=== PATIENT | female | born 1945 | race Caucasian/White ===

== ENCOUNTER → 2024-01-07 12:47 | Outpatient (REF) | payer MEDICARE, OTHER, SELFPAY | LOC: WDC 12:47 | PROVIDERS: ATTENDING PHYSICIAN Family Medicine | DX: Z12.31 Encounter for screening mammogram for malignant neoplasm of breast (principal) | CPT/HCPCS: 77063; 77067 ==

== ENCOUNTER → 2024-01-12 10:22 | Outpatient (REF) | payer MEDICARE, OTHER, SELFPAY ==
[2024-01-12 11:11] LABS: % Basophils 0.8 % (0-2); % Eosinophils 5.1 % (0-6); % Immature Granulocytes 0.4 % (0-0.5); % Lymphocytes 22.5 % (20.5-51.1); % Neutrophils 64.2 % (42.2-75.2); Absolute Eosinophils 0.3 10^3/uL (0-0.7); Absolute Lymphocytes 1.2 10^3/uL (1.2-3.4); Absolute Monocytes 0.4 10^3/uL (0.1-0.6); Absolute Neutrophils 3.4 10^3/uL (1.4-6.5); Hematocrit 47.1 % (37.0-47.0); Hemoglobin 16.2 g/dL (12.0-16.0); Mean Corp Hgb Conc. 34.4 g/dL (33.0-37.0); Mean Corpuscular Hgb 32.7 pg (27.0-31.0); Mean Corpuscular Volume 95.2 fL (81.0-99.0); Mean Platelet Volume 10.1 fL (7.4-10.4); Nucleated Red Blood Cells % 0 %; Platelet Count 266 10^3/uL (130-400); Red Blood Cell Count 4.95 10^6/uL (4.20-5.40); Red Cell Dist. Width 13.1 % (11.5-14.5); White Blood Cell Count 5.3 10^3/uL (4.8-10.8)
[2024-01-12 11:44] LABS: ALT (SGPT) 45 U/L (0-35); AST (SGOT) 40 U/L (14-36); Albumin 4.8 g/dl (3.5-5.0); Alkaline Phosphatase 74 U/L (38-126); Blood Urea Nitrogen 20 mg/dl (7-17); Calcium 9.8 mg/dl (8.4-10.2); Carbon Dioxide 28 mmol/L (22-30); Chloride 101 mmol/L (98-107); Glucose 130 mg/dl (70-99); Potassium 4.1 mmol/L (3.5-5.1); Sodium 140 mmol/L (135-145); Total Bilirubin 0.7 mg/dl (0.2-1.3); Total Protein 7.3 g/dl (6.3-8.2); Uric Acid 5.4 mg/dl (2.5-6.2); eGFR > 60.00
== END ==
LOC: REG 10:22
PROVIDERS: ATTENDING PHYSICIAN Internal Medicine; FAMILY PHYSICIAN Family Medicine
DX: M10.9 Gout, unspecified (principal); M1A.9XX1 Chronic gout, unspecified, with tophus (tophi); Z51.81 Encounter for therapeutic drug level monitoring
CPT/HCPCS: 36415; 80053; 84550; 85025

== ENCOUNTER → 2024-04-20 07:28 | Outpatient (REF) | payer MEDICARE, OTHER, SELFPAY ==
[2024-04-20 09:18] LABS: % Basophils 0.9 % (0-2); % Immature Granulocytes 0.2 % (0-0.5); % Lymphocytes 27.1 % (20.5-51.1); % Monocytes 9.6 % (1.7-9.3); % Neutrophils 56.2 % (42.2-75.2); Absolute Basophils 0.1 10^3/uL (0-0.2); Absolute Eosinophils 0.4 10^3/uL (0-0.7); Absolute Lymphocytes 1.6 10^3/uL (1.2-3.4); Absolute Monocytes 0.6 10^3/uL (0.1-0.6); Absolute Neutrophils 3.3 10^3/uL (1.4-6.5); Hematocrit 44.7 % (37.0-47.0); Hemoglobin 14.8 g/dL (12.0-16.0); Mean Corp Hgb Conc. 33.1 g/dL (33.0-37.0); Mean Corpuscular Hgb 32.4 pg (27.0-31.0); Mean Corpuscular Volume 97.8 fL (81.0-99.0); Mean Platelet Volume 10.2 fL (7.4-10.4); Nucleated Red Blood Cells % 0 %; Platelet Count 235 10^3/uL (130-400); Red Blood Cell Count 4.57 10^6/uL (4.20-5.40); Red Cell Dist. Width 13.1 % (11.5-14.5); White Blood Cell Count 5.8 10^3/uL (4.8-10.8)
[2024-04-20 09:46] LABS: ALT (SGPT) 25 U/L (0-35); AST (SGOT) 31 U/L (14-36); Albumin 4.5 g/dl (3.5-5.0); Alkaline Phosphatase 78 U/L (38-126); Blood Urea Nitrogen 17 mg/dl (7-17); Carbon Dioxide 32 mmol/L (22-30); Chloride 100 mmol/L (98-107); Glucose 112 mg/dl (70-99); Potassium 4.1 mmol/L (3.5-5.1); Sodium 141 mmol/L (135-145); Total Bilirubin 0.5 mg/dl (0.2-1.3); Total Protein 6.9 g/dl (6.3-8.2); Uric Acid 4.7 mg/dl (2.5-6.2); eGFR > 60.00
== END ==
LOC: REG 07:28
PROVIDERS: ATTENDING PHYSICIAN Internal Medicine; FAMILY PHYSICIAN Family Medicine
DX: M10.9 Gout, unspecified (principal); M1A.9XX1 Chronic gout, unspecified, with tophus (tophi); Z51.81 Encounter for therapeutic drug level monitoring
CPT/HCPCS: 36415; 80053; 84550; 85025

== ENCOUNTER → 2024-08-11 07:23 | Outpatient (REF) | payer MEDICARE, OTHER, SELFPAY ==
[2024-08-11 09:16] LABS: ALT (SGPT) 32 U/L (0-35); AST (SGOT) 33 U/L (14-36); Albumin 4.6 g/dl (3.5-5.0); Alkaline Phosphatase 69 U/L (38-126); Blood Urea Nitrogen 19 mg/dl (7-17); Calcium 9.8 mg/dl (8.4-10.2); Carbon Dioxide 30 mmol/L (22-30); Chloride 99 mmol/L (98-107); Glucose 116 mg/dl (70-99); HDL Cholesterol 45 mg/dl; LDL Cholesterol, Calculated 75 mg/dl; Potassium 3.8 mmol/L (3.5-5.1); Sodium 144 mmol/L (135-145); Total Bilirubin 0.5 mg/dl (0.2-1.3); Total Cholesterol 191 mg/dl (50-199); Total Protein 6.9 g/dl (6.3-8.2); Triglyceride 355 mg/dl (10-149); Very Low Density Lipoprotein 71 mg/dl (0-30); eGFR > 60.00
[2024-08-11 09:54] LABS: Glycohemoglobin (HgbA1c) 6.2 % (4.0-5.6)
== END ==
LOC: REG 07:23
PROVIDERS: ATTENDING PHYSICIAN Family Medicine
DX: E78.2 Mixed hyperlipidemia (principal); R73.9 Hyperglycemia, unspecified
CPT/HCPCS: 36415; 80053; 80061; 83036

== ENCOUNTER → 2024-10-19 07:39 | Outpatient (REF) | payer MEDICARE, OTHER, SELFPAY ==
[2024-10-19 08:23] LABS: % Basophils 0.7 % (0-2); % Eosinophils 6.3 % (0-6); % Immature Granulocytes 0.4 % (0-0.5); % Lymphocytes 30.6 % (20.5-51.1); % Monocytes 10.2 % (1.7-9.3); % Neutrophils 51.8 % (42.2-75.2); Absolute Eosinophils 0.4 10^3/uL (0-0.7); Absolute Lymphocytes 1.7 10^3/uL (1.2-3.4); Absolute Monocytes 0.6 10^3/uL (0.1-0.6); Absolute Neutrophils 2.9 10^3/uL (1.4-6.5); Hemoglobin 14.7 g/dL (12.0-16.0); Mean Corp Hgb Conc. 32.7 g/dL (33.0-37.0); Mean Corpuscular Hgb 32.6 pg (27.0-31.0); Mean Corpuscular Volume 99.8 fL (81.0-99.0); Mean Platelet Volume 9.6 fL (7.4-10.4); Nucleated Red Blood Cells % 0 %; Platelet Count 241 10^3/uL (130-400); Red Blood Cell Count 4.51 10^6/uL (4.20-5.40); Red Cell Dist. Width 13.3 % (11.5-14.5); White Blood Cell Count 5.6 10^3/uL (4.8-10.8)
[2024-10-19 08:59] LABS: ALT (SGPT) 28 U/L (0-35); AST (SGOT) 31 U/L (14-36); Albumin 4.5 g/dl (3.5-5.0); Alkaline Phosphatase 67 U/L (38-126); Blood Urea Nitrogen 18 mg/dl (7-17); Calcium 9.6 mg/dl (8.4-10.2); Carbon Dioxide 29 mmol/L (22-30); Chloride 100 mmol/L (98-107); Glucose 111 mg/dl (70-99); Sodium 140 mmol/L (135-145); Total Bilirubin 0.6 mg/dl (0.2-1.3); Total Protein 6.8 g/dl (6.3-8.2); Uric Acid 4.6 mg/dl (2.5-6.2); eGFR > 60.00
== END ==
LOC: REG 07:39
PROVIDERS: ATTENDING PHYSICIAN Internal Medicine
DX: M10.9 Gout, unspecified (principal); M1A.9XX1 Chronic gout, unspecified, with tophus (tophi); Z51.81 Encounter for therapeutic drug level monitoring
CPT/HCPCS: 36415; 80053; 84550; 85025

== ENCOUNTER → 2025-01-30 16:40 | Outpatient (REF) | payer MEDICARE, OTHER, SELFPAY | LOC: WDC 16:40 | PROVIDERS: ATTENDING PHYSICIAN Family Medicine | DX: Z12.31 Encounter for screening mammogram for malignant neoplasm of breast (principal) | CPT/HCPCS: 77063; 77067 ==

== ENCOUNTER → 2025-04-27 07:33 | Outpatient (REF) | payer MEDICARE, OTHER, SELFPAY ==
[2025-04-27 08:04] LABS: % Basophils 0.8 % (0-2); % Eosinophils 6.4 % (0-6); % Immature Granulocytes 0.3 % (0-0.5); % Lymphocytes 29.1 % (20.5-51.1); % Monocytes 8.9 % (1.7-9.3); % Neutrophils 54.5 % (42.2-75.2); Absolute Basophils 0.1 10^3/uL (0-0.2); Absolute Eosinophils 0.4 10^3/uL (0-0.7); Absolute Lymphocytes 1.7 10^3/uL (1.2-3.4); Absolute Monocytes 0.5 10^3/uL (0.1-0.6); Absolute Neutrophils 3.2 10^3/uL (1.4-6.5); Hemoglobin 15.2 g/dL (12.0-16.0); Mean Corp Hgb Conc. 33.8 g/dL (33.0-37.0); Mean Corpuscular Hgb 32.4 pg (27.0-31.0); Mean Corpuscular Volume 95.9 fL (81.0-99.0); Mean Platelet Volume 9.9 fL (7.4-10.4); Nucleated Red Blood Cells % 0 %; Platelet Count 212 10^3/uL (130-400); Red Blood Cell Count 4.69 10^6/uL (4.20-5.40); Red Cell Dist. Width 13.3 % (11.5-14.5)
[2025-04-27 08:36] LABS: ALT (SGPT) 24 U/L (0-35); AST (SGOT) 24 U/L (14-36); Albumin 4.6 g/dl (3.5-5.0); Alkaline Phosphatase 62 U/L (38-126); Blood Urea Nitrogen 22 mg/dl (7-17); Carbon Dioxide 30 mmol/L (22-30); Chloride 104 mmol/L (98-107); Glucose 118 mg/dl (70-99); Potassium 4.1 mmol/L (3.5-5.1); Sodium 143 mmol/L (135-145); Total Bilirubin 0.7 mg/dl (0.2-1.3); Total Protein 7.1 g/dl (6.3-8.2); Uric Acid 4.8 mg/dl (2.5-6.2); eGFR > 60.00
== END ==
LOC: REG 07:33
PROVIDERS: ATTENDING PHYSICIAN Physician Assistant; FAMILY PHYSICIAN Family Medicine
DX: M10.9 Gout, unspecified (principal); M1A.9XX1 Chronic gout, unspecified, with tophus (tophi); Z51.81 Encounter for therapeutic drug level monitoring
CPT/HCPCS: 36415; 80053; 84550; 85025

== ENCOUNTER → 2025-07-13 07:04 | Outpatient (REF) | payer MEDICARE, OTHER, SELFPAY ==
[2025-07-13 07:42] LABS: Hematocrit 45.5 % (37.0-47.0); Hemoglobin 15.2 g/dL (12.0-16.0); Mean Corp Hgb Conc. 33.4 g/dL (33.0-37.0); Mean Corpuscular Volume 97.2 fL (81.0-99.0); Nucleated Red Blood Cells % 0 %; Platelet Count 229 10^3/uL (130-400); Red Cell Dist. Width 13.2 % (11.5-14.5)
[2025-07-13 08:19] LABS: ALT (SGPT) 29 U/L (0-35); AST (SGOT) 28 U/L (14-36); Albumin 4.8 g/dl (3.5-5.0); Alkaline Phosphatase 70 U/L (38-126); Blood Urea Nitrogen 22 mg/dl (7-17); Calcium 9.7 mg/dl (8.4-10.2); Carbon Dioxide 33 mmol/L (22-30); Chloride 102 mmol/L (98-107); Glucose 110 mg/dl (70-99); HDL Cholesterol 42 mg/dl; LDL Cholesterol, Calculated 60 mg/dl; Potassium 4.2 mmol/L (3.5-5.1); Sodium 143 mmol/L (135-145); Total Protein 7.0 g/dl (6.3-8.2); Very Low Density Lipoprotein 68 mg/dl (0-30); eGFR > 60.00
[2025-07-13 08:46] LABS: TSH 5.27 uIU/ml (0.47-4.68)
[2025-07-13 10:12] LABS: Glycohemoglobin (HgbA1c) 6.2 % (4.0-5.6)
== END ==
LOC: REG 07:04
PROVIDERS: ATTENDING PHYSICIAN Family Medicine
DX: R73.9 Hyperglycemia, unspecified (principal); E03.9 Hypothyroidism, unspecified; I10 Essential (primary) hypertension; E78.2 Mixed hyperlipidemia; R73.03 Prediabetes
CPT/HCPCS: 36415; 80053; 80061; 83036; 84443; 85025

== ENCOUNTER → 2025-09-17 07:00 | Outpatient (REF) | payer MEDICARE, OTHER, SELFPAY ==
[2025-09-17 09:04] LABS: TSH 2.96 uIU/ml (0.47-4.68)
== END ==
LOC: REG 07:00
PROVIDERS: ATTENDING PHYSICIAN Family Medicine
DX: E03.9 Hypothyroidism, unspecified (principal)
CPT/HCPCS: 36415; 84443

== ENCOUNTER 2025-10-03 11:50 | Emergency (ER) | payer MEDICARE, OTHER, SELFPAY ==
[2025-10-03 11:58] VITALS: BP 169/97
[2025-10-03 12:17] LABS: Hematocrit 46.6 % (37.0-47.0); Hemoglobin 16.2 g/dL (12.0-16.0); Mean Corp Hgb Conc. 34.8 g/dL (33.0-37.0); Mean Corpuscular Volume 93.2 fL (81.0-99.0); Nucleated Red Blood Cells % 0 %; Platelet Count 285 10^3/uL (130-400); Red Cell Dist. Width 13.2 % (11.5-14.5)
[2025-10-03 12:29] LABS: ALT (SGPT) 24 U/L (0-35); AST (SGOT) 26 U/L (14-36); Albumin 5.0 g/dl (3.5-5.0); Alkaline Phosphatase 71 U/L (38-126); Blood Urea Nitrogen 14 mg/dl (7-17); Calcium 10.0 mg/dl (8.4-10.2); Carbon Dioxide 30 mmol/L (22-30); Chloride 99 mmol/L (98-107); Glucose 147 mg/dl (70-99); Potassium 3.5 mmol/L (3.5-5.1); Sodium 138 mmol/L (135-145); Total Protein 7.7 g/dl (6.3-8.2); eGFR > 60.00
[2025-10-03 13:18] LABS: Urine Character Clear (Clear)
[2025-10-03 13:25] LABS: Urine Red Blood Cell 0-2 /HPF (0-2); Urine White Cell 0-2 /HPF (0-5)
--- NOTE | 2025-10-03 13:37 | ED.GENMED ---
History of Present Illness
General
Chief Complaint: Anxiety
Time Seen by Provider: 10/03/25 13:37
History of Present Illness
History of Present Illness:
FOCUSED PAST MEDICAL HISTORY
- Hypothyroidism, breast cancer, anxiety
REVIEW OF OLD RECORDS
- No old records available for review in [facility]
Note:
CHIEF COMPLAINT(S)
Anxiety and panic attacks.
HISTORY OF PRESENT ILLNESS
The patient is a 80-year-old female with a reported past medical history of mild anxiety. She presents with worsening anxiety symptoms over the past three weeks. Initially, she experienced significant difficulties coping and increased anxiety
levels, prompting her to seek medical care. A week ago, she was prescribed escitalopram (Lexapro) 5 mg daily, which she reports has worsened her symptoms, especially today.
Historically, she has managed her anxiety with alprazolam (Xanax) 0.125 mg as needed for about 20-30 years. Recently, she has been consuming this dose, which she describes as 'half of the lowest dosage,' once or twice daily during heightened anxiety
episodes. She last took a dose this morning.
The onset of severe anxiety coincided with her non-specific test for urinary tract infection (UTI), which she perceived as positive, though she reports no typical UTI symptoms currently. Her urinary analysis in the emergency room showed an absence
of significant leukocytes, negative nitrites, and normal urinary findings, suggesting no active UTI. Blood tests indicated slightly elevated blood sugar but were otherwise normal.
PAST MEDICAL AND SURIGICAL HISTORY
Reported propensity to urinary tract infections, last noted about a year ago, with symptoms like hemorrhagic manifestations.
SOCIAL HISTORY
No alcohol or drug use reported.
MEDICATIONS
- Alprazolam 0.125 mg as needed
- Escitalopram 5 mg once daily
PHYSICAL EXAM
General: Alert, no acute distress.
Skin: Warm, dry.
Head: Normocephalic, atraumatic.
Neck: Supple, trachea midline.
Eye, Ears, Nose, Mouth, and Throat: Oral mucosa moist.
Cardiovascular: Normal peripheral perfusion, no edema.
Respiratory: Respirations are non-labored.
Gastrointestinal: Abdomen nondistended.
Back: Normal range of motion, normal alignment.
Musculoskeletal: Normal range of motion, normal strength.
Neurological: Alert and oriented to person, place, time, and situation, no focal neurological deficit observed.
Psychiatric: Cooperative, appropriate mood & affect. Does not necessarily appear particularly anxious currently
PROBLEM LIST
- Acute: Anxiety exacerbation
PLAN
Consultation with psychiatry for potential adjustment of medication or additional intervention. Monitor and reassess anxiety management strategies and consider therapeutic alternatives if necessary.
DIFFERENTIAL DIAGNOSIS
The Differential Diagnosis includes, in no particular order and is not limited to:
- Generalized anxiety disorder
- Medication-induced anxiety
- Panic disorder
- Hyperthyroidism
- Depression
- Adjustment disorder
- UTI with atypical presentation
- Electrolyte imbalance
- Dementia with behavioral disturbances
- Drug withdrawal
LABS
- Urinalysis shows no evidence of UTI, CBC and chemistries unremarkable, TSH 1.33
UPDATE
- I reached out to Dr. Grey for any other recommendations. She recommends increasing Lexapro and patient states she will be doing this later today.
SUMMARY OF ENCOUNTER
The patient, a 80-year-old female, presented with exacerbated anxiety and panic attacks over the past three weeks, worsened since starting escitalopram (Lexapro) 5 mg daily. An emergency room visit was prompted due to heightened anxiety and lack of
coping mechanisms. Historically, she managed anxiety with alprazolam (Xanax) 0.125 mg as needed over many years, describing recent doses as minimal. The psychiatrist was consulted about her medication regimen, particularly the escalation plan for
escitalopram and management of alprazolam usage. The decision was made to potentially increase escitalopram to 10 mg while cautioning against regular, daily use of alprazolam to avoid physiological dependence, recommending it only during severe
anxiety episodes.
MANAGEMENT OF THE PATIENTS CARE WAS DISCUSSED WITH
Consultation with the patients psychiatrist was made but with no additional major recommendations. The psychiatrist suggested considering other potential outpatient psychiatrists for further care.
PLAN
Increase escitalopram to 10 mg as initially planned to evaluate effectiveness in anxiety control. Encourage limited alprazolam use and only during significant anxiety episodes. Provide contact information of other psychiatrists for potential
outpatient follow-up.
PATIENT EDUCATION AND COUNSELING
Discussed the importance of using alprazolam sparingly to avoid dependence. Reviewed that escitalopram might take a few weeks for full efficacy. Encouraged exploration of other outpatient psychiatric care options.
FOLLOW-UP INSTRUCTIONS
Seek follow-up with outpatient psychiatric care, considering new referrals if necessary, for continued management and monitoring of anxiety treatment.
MEDICATION RECONCILIATION
- Escitalopram 10 mg as directed by patient�s current titration plan.
- Alprazolam as needed, emphasizing acute severe anxiety episodes only.
MEDICAL DECISION MAKING
-Complexity of Data Reviewed: Chronic conditions affecting care include mild anxiety managed with alprazolam in the past. Differential Diagnosis includes generalized anxiety disorder, medication-induced anxiety, and panic disorder, among others.
-Data:
Category 3
Discussion of management with the patients psychiatrist regarding medication adjustments was conducted.
-Risk:
Prescription medication management with potential for alprazolam dependency was addressed, weighing the risks of polypharmacy and physiological addiction.
DIAGNOSIS
- Generalized Anxiety Disorder (MATT) (F41.1)
- Panic Disorder (F41.0)
We talked about increasing the Lexapro dosing which she was already going to do
We also talked about increasing the alprazolam dosing but to continue to use sparingly due to concern for physiologic addiction potential
Phy Exam
Physical Exam
Physical Exam:
See HPI
Course
Orders/Labs/Results
Orders:
Orders
10/03/25 12:08
Complete Blood Count/With Diff Urgent
Comprehensive Metabolic Panel Urgent
TSH Reflex To Free T4 Urgent
10/03/25 12:55
Urinalysis Reflex To Culture Urgent
Date Specimen was Collected: 10/03/25
Time Specimen was Collected: 12:03
Urine Microscopic Reflex Cult Urgent
Urine Culture Urgent
CLIFFORD Source: U
Specimen Description:
Date Specimen was Collected: 10/03/25
Time Specimen was Collected: 12:03
Abnormal Lab Results
10/03/25 10/03/25
12:08 12:55
Hgb 16.2 H g/dL
(12.0-16.0)
MCH 32.4 H pg
(27.0-31.0)
Lymphocytes % 19.1 L %
(20.5-51.1)
Glucose 147 H mg/dl
(70-99)
Ur Occult Blood Reflex 2+ A
(Negative)
Leukocyte Esterase Rfl 1+ A
(Negative)
Urine Bacteria (Reflex) Few A
(Negative)
Urine Albumin (Reflex) 1+ A
(Neg - Trace)
10/03/25 12:08
10/03/25 12:08
Vital Signs
Initial and Last Documented VS:
Initial Vital Signs
Temp Pulse Resp BP Pulse Ox
36.7 C 79 16 169/97 98
10/03/25 11:58 10/03/25 11:58 10/03/25 11:58 10/03/25 11:58 10/03/25 11:58
Last Documented Vital Signs
Temp Pulse Resp BP Pulse Ox
36.9 C 79 16 140/79 98
10/03/25 13:50 10/03/25 11:58 10/03/25 11:58 10/03/25 13:53 10/03/25 13:37
*Pulse Oximetry
SaO2: 98
Oxygen Mode of Delivery: Room air
Patient hypoxic: no
*Critical Care Note
Total Time (30-74mins, 75-104mins- exclusive of procedures): Not Applicable
ED Attending Note
-
Portions of this chart may have been created with voice recognition software.� Occasional wrong word or��sound alike� substitutions may have occurred due to the inherent limitations of voice recognition software.
Discharge Plan
Departure
Patient Disposition: Home (Routine Discharge)
Date of Disposition: 10/03/25
Time of Disposition: 15:09
Patient with high blood pressure during this ER visit?: Yes
Discharge Problem:
Anxiety
Referrals:
Kevin Solo MD [Family Provider, Family Practice]
Tawanda Thomas MD [Consulting Staff, Psychiatry]
Mildred Ford MD [Non-Admitting Privileges]
John Burton MD [Active, Psychiatry]
Activity Restrictions/Additional Instructions:
Instead of taking just half of the 0.25 mg alprazolam, you could take either of full tablet or 2 tablets at 1 time. I recommend taking this no more than once per day. Try to limit the use of this as you take it on a daily basis for 2 weeks, your
body will become physiologically addicted to it. It works well for severe symptoms on an as needed basis when used more sparingly. Your basic blood work is unremarkable. Thyroid level was also normal. There is no sign of urinary tract infection.
I reached out to Dr. Grey the on-call psychiatrist who recommends if you have Medicare not an advantage plan call [facility] [phone]. You could also try calling Tawanda Wagoner, Mildred Ford, Daniella Baker.
Interventions
Interventions:
*Risk Screen - Suicide Last Done: 10/03/25 11:58
*General Assessment Last Done: 10/03/25 11:58
*Neglect/Abuse Screening Last Done: 10/03/25 11:58
*ED- Fall Risk Assessment Last Done: 10/03/25 11:58
*ED COVID-19 Vaccine History Last Done: 10/03/25 12:02
*ED Influenza Vaccine History Last Done: 10/03/25 11:58
Discharge Date and Time
Print Language: HUNGARIAN
[2025-10-03 13:53] VITALS: BP 140/79
== END 2025-10-03 15:18 | disposition home or self-care (01) ==
LOC: EMR 11:50
PROVIDERS: Emergency Medicine; EMERGENCY PHYSICIAN Emergency Medicine; FAMILY PHYSICIAN Family Medicine
DX: F41.9 Anxiety disorder, unspecified (principal); E03.9 Hypothyroidism, unspecified; Z85.3 Personal history of malignant neoplasm of breast; Z79.899 Other long term (current) drug therapy
CPT/HCPCS: 99283; 80053; 81003; 81015; 84443; 85025; 87086